=== PATIENT | male | born 1995 | race Caucasian/White ===

== ENCOUNTER 2020-04-26 12:00 | Emergency (ER) | payer OTHER, SELFPAY ==
[2020-04-26 12:23] VITALS: BP 137/77; PULSE 58; RESP 16; TEMP 37.2; O2SAT 99
--- NOTE | 2020-04-26 12:49 | ED.MALEGU ---
HPI - Male Genitourinary General Chief complaint: Urogenital-Male Stated complaint: STD Source: patient Mode of arrival: ambulatory Limitations: no limitations Related Data Home Medications Medication Instructions Recorded Confirmed No Home Medications 04/26/20 04/26/20 Allergies Allergy/AdvReac Type Severity Reaction Status Date / Time amoxicillin Allergy Unknown Hives Verified 04/26/20 12:21 [facility] Past Medical History Medical History (Updated 02/19/19 @ 00:00 by Mandy Nation) STD (sexually transmitted disease) Social History Social History (Updated 02/18/19 @ 18:17 by CAREN Floyd) Smoking status: Never smoker Alcohol intake: current Substance use: never Gender identity (if verbalized by the patient): Male Course Vital Signs Vital signs: Vital Signs Temperature 37.2 C 04/26/20 12:23 Pulse Rate 58 L 04/26/20 12:23 Respiratory Rate 16 04/26/20 12:23 Blood Pressure 137/77 04/26/20 12:23 Pulse Oximetry 99 04/26/20 12:23 Temperature 37.2 C 04/26/20 12:23 Pulse Rate 58 L 04/26/20 12:23 Respiratory Rate 16 04/26/20 12:23 Blood Pressure 137/77 04/26/20 12:23 Pulse Oximetry 99 04/26/20 12:23 Discharge Plan Discharge Prescriptions: No Action No Home Medications RF: 0
[2020-04-26] MEDS: AZITHROMYCIN 250 MG TABLET 2000 MG PO (13:10)
== END 2020-04-26 13:24 | disposition home or self-care (01) ==
PROVIDERS: Emergency Provider Nurse Practitioner
DX: Z20.2 Contact with and (suspected) exposure to infections with a predominantly sexual mode of transmission (principal)
CPT/HCPCS: 87491; 87591; 87661; 99213; A9270; G0463

== ENCOUNTER 2023-05-05 14:19 | Emergency (ER) | payer BC, SELFPAY ==
[2023-05-05 14:30] VITALS: BP 135/67; PULSE 80; RESP 16; TEMP 37.7; O2SAT 99
--- NOTE | 2023-05-05 14:43 | ED.URI ---
HPI - URI/Sore Throat General Chief Complaint: Upper Respiratory Infection Stated Complaint: sore throat Time Seen by Provider: 05/05/23 14:43 Source: patient Mode of arrival: ambulatory Limitations: no limitations History of Present Illness HPI Narrative: 27-year-old male presents with complaint of sore throat, throat swelling, body aches, fatigue, headache, chills starting last night. Reports that his girlfriend was recently diagnosed with strep throat. Denies nausea vomiting diarrhea. Afebrile. All systems reviewed and negative except as noted above. Related Data Allergies Allergy/AdvReac Type Severity Reaction Status Date / Time amoxicillin Allergy Unknown Hives Verified 05/05/23 14:24 Review of Systems Review of Systems: CONSTITUTIONAL: Denies fever, chills, or sweats. EYES: Denies visual changes, redness, or discharge. ENT: Denies rhinorrhea, congestion . Reports sore throat. Denies otalgia. CARDIOVASCULAR: Denies chest pain, palpitations, or edema. RESPIRATORY: Denies cough or dyspnea. GASTROINTESTINAL: Denies abdominal pain, nausea, vomiting, or diarrhea. GENITOURINARY: Denies dysuria or hematuria. SKIN: Denies rash or itching. MUSCULOSKELETAL: Denies back pain, joint pain. Reports myalgia. NEUROLOGIC: reports headache. Denies numbness, or weakness. PSYCHIATRIC: Denies anxiety or depression. All other systems reviewed are negative, except as documented in HPI. [facility] Past Medical History Medical History (Updated 05/05/23 @ 14:48 by Jaylin Pacheco NP) STD (sexually transmitted disease) Social History Social History (Updated 02/18/19 @ 18:17 by Radha Small, [employer]) Smoking status: Never smoker Alcohol intake: current Alcohol use details: socially Substance use: never Occupation/Education: occupation Gender identity (if verbalized by the patient): Male Comments At time of signature, agree with nursing past medical, surgical, social and family history. There is no relevant family history pertinent to the presenting complaint. Exam Narrative: GENERAL: This is a well-nourished, well-developed patient, in no apparent distress. HEAD: normocephalic, atraumatic. EYES: PERRL. Sclera clear/white. Vision is grossly intact. EARS: External ears normal, auditory canals clear and without drainage, TMs normal without perforation. Hearing grossly intact. NOSE: External nose normal with no obvious nasal discharge, nares without redness, no rhinorrhea. THROAT: Mucous membranes moist, erythematous, tonsils 2+ bilaterally without exudates. NECK: Neck supple, non-tender without lymphadenopathy, masses or thyromegaly. CARDIOVASCULAR: Regular rate and rhythm without murmurs, gallops, or rubs. RESPIRATORY: Clear to auscultation. Breath sounds equal bilaterally. No wheezes, rales, or rhonchi. SKIN: warm, Dry, intact with no suspicious lesions or rash, good texture and turgor. NEURO: awake, alert, and oriented to person, place and time. There were no obvious focal neurologic abnormalities. EXTREMITIES: No joint tenderness, effusion, or edema noted. Course Course Level of Care: Express Care Visit Vital Signs Vital signs: Vital Signs Temperature 37.7 C H 05/05/23 14:30 Pulse Rate 80 05/05/23 14:30 Respiratory Rate 16 05/05/23 14:30 Blood Pressure 135/67 05/05/23 14:30 Pulse Oximetry 99 05/05/23 14:30 Oxygen Delivery Room Air 05/05/23 14:30 Temperature 37.7 C H 05/05/23 14:30 Pulse Rate 80 05/05/23 14:30 Respiratory Rate 16 05/05/23 14:30 Blood Pressure 135/67 05/05/23 14:30 Pulse Oximetry 99 05/05/23 14:30 Oxygen Delivery Room Air 05/05/23 14:30 Reviewed MDM - URI/Sore Throat MDM Narrative Medical decision making narrative: Patient is aware of diagnosis, understands and agrees to treatment plan. Anticipatory guidance given. Patient agrees to follow-up as directed and is aware of reasons to seek care at the emergency departmen
== END 2023-05-05 14:55 | disposition home or self-care (01) ==
PROVIDERS: Emergency Provider Nurse Practitioner Family
DX: J03.90 Acute tonsillitis, unspecified (principal)
CPT/HCPCS: 87880; 99213; G0463

== ENCOUNTER 2023-05-14 14:16 | Emergency (ER) | payer BC, SELFPAY ==
--- NOTE | 2023-05-14 14:25 | ED.EYEPROB ---
HPI - Eye Problem General Chief complaint: Eye Problems Stated complaint: both eyes red, not much better since last visit Time Seen by Provider: 05/14/23 14:26 Source: patient Mode of arrival: ambulatory Limitations: no limitations History of Present Illness HPI Narrative: 27-year-old male presents with complaint sore throat for the past 10-12 days. Patient took cefdinir with no relief of symptoms. Afebrile. Patient reports that sore throat is Often on. States his girlfriend also had sore throat was told she had strep throat, finished antibiotic and is also not feeling better. patient reports his other family member had influenza B and would like to be checked for that today. also reports erythema and purulent drainage both eyes starting today. All systems reviewed and negative except as noted above. Related Data Allergies Allergy/AdvReac Type Severity Reaction Status Date / Time amoxicillin Allergy Unknown Hives Verified 05/14/23 14:24 Review of Systems Review of Systems: CONSTITUTIONAL: Denies fever, chills, or sweats. EYES: Denies visual changes . Reports redness and discharge both eyes. ENT: Denies rhinorrhea, congestion . Reports sore throat. Denies otalgia. CARDIOVASCULAR: Denies chest pain, palpitations, or edema. RESPIRATORY: Denies cough or dyspnea. GASTROINTESTINAL: Denies abdominal pain, nausea, vomiting, or diarrhea. GENITOURINARY: Denies dysuria or hematuria. SKIN: Denies rash or itching. MUSCULOSKELETAL: Denies back pain, joint pain, or myalgia. NEUROLOGIC: Denies headache, numbness, or weakness. PSYCHIATRIC: Denies anxiety or depression. All other systems reviewed are negative, except as documented in HPI. [facility] Past Medical History Medical History (Updated 05/14/23 @ 15:13 by Jaylin Pacheco NP) STD (sexually transmitted disease) Social History Social History (Updated 02/18/19 @ 18:17 by Radha Small, [employer]IDENT[employer]IC[employer]) Smoking status: Never smoker Alcohol intake: current Alcohol use details: socially Substance use: never Occupation/Education: occupation Gender identity (if verbalized by the patient): Male Comments At time of signature, agree with nursing past medical, surgical, social and family history. There is no relevant family history pertinent to the presenting complaint. Exam Narrative: GENERAL: This is a well-nourished, well-developed patient, in no apparent distress. HEAD: normocephalic, atraumatic. EYES: PERRL. Sclera clear/white. Vision is grossly intact. EARS: External ears normal, auditory canals clear and without drainage, TMs normal without perforation. Hearing grossly intact. NOSE: External nose normal with no obvious nasal discharge, nares without redness, no rhinorrhea. THROAT: Mucous membranes moist, no erythema. Tonsils 1+ bilaterally without exudates or erythema. Postnasal drainage noted. NECK: Neck supple, non-tender without lymphadenopathy, masses or thyromegaly. CARDIOVASCULAR: Regular rate and rhythm without murmurs, gallops, or rubs. RESPIRATORY: Clear to auscultation. Breath sounds equal bilaterally. No wheezes, rales, or rhonchi. SKIN: warm, Dry, intact with no suspicious lesions or rash, good texture and turgor. NEURO: awake, alert, and oriented to person, place and time. There were no obvious focal neurologic abnormalities. EXTREMITIES: No joint tenderness, effusion, or edema noted. Course Course Level of Care: Express Care Visit Vital Signs Vital signs: Vital Signs Temperature 37.1 C 05/14/23 14:26 Pulse Rate 73 05/14/23 14:26 Respiratory Rate 16 05/14/23 14:26 Blood Pressure 143/90 H 05/14/23 14:26 Pulse Oximetry 99 05/14/23 14:26 Oxygen Delivery Room Air 05/14/23 14: Temperature 37.1 C 05/14/23 14: Pulse Rate 73 05/14/23 14:26 Respiratory Rate 16 05/14/23 14:26 Blood Pressure 143/90 H 05/14/23 14:26 Pulse Oximetry 99 05/14/23 14:26 Oxygen Delivery Room Air 05/14/23 14:26
[2023-05-14 14:26] VITALS: BP 143/90; PULSE 73; RESP 16; TEMP 37.1; O2SAT 99
== END 2023-05-14 15:21 | disposition home or self-care (01) ==
PROVIDERS: Emergency Provider Nurse Practitioner Family
DX: J01.90 Acute sinusitis, unspecified (principal); R09.82 Postnasal drip; H10.33 Unspecified acute conjunctivitis, bilateral; Z20.822 Contact with and (suspected) exposure to COVID-19
CPT/HCPCS: 36416; 86308; 87426; 87804; 99213; G0463